=== PATIENT | female | born 1985 | race Hispanic/Latino ===

== ENCOUNTER 2025-10-12 11:55 | Emergency (ER) | payer BC ==
[~2025-10-12] VITALS: Ht 157.5 cm; Wt 81.6 kg
[~2025-10-12 11:55] MED LIST: DOCU-116 PO; IBUP-1493 PO; PREN-66 PO
[2025-10-12 12:22] LABS: IMMATURE GRANULOCYTE ABSOLUTE 0.05 K/uL (0-1); NUCLEATED RED BLOOD CELLS 0.0 % (0.0-0.19); PLATELET COUNT (AUTO) 264 K/uL (130-400); RED BLOOD CELL COUNT(AUTO) 4.41 MIL/uL (4.00-5.50); RED CELL DISTRIBUTION WIDTH 12.3 % (11.0-15.5); WHITE BLOOD COUNT (AUTO) 7.5 K/uL (4.8-10.8)
[2025-10-12] MEDS: 0.9%NACL 1000ML 1,000 ML IV ONE (12:22)
[2025-10-12] MEDS: ORPHENADRINE 60MG/2ML IM ONE (12:25)
[2025-10-12] MEDS: PROCHLORPERAZINE 10MG/2ML INJ IV ONE (12:25)
[2025-10-12 12:31] LABS: CREATININE 0.8 mg/dL (0.5-1.0); GLOMERULAR FILTR. RATE CALC 97.0 mL/min (>90); GLUCOSE,RANDOM 93.0 mg/dL (70-105); SODIUM SERUM 135.0 mmol/L (136-145); UREA NITROGEN, BLOOD 11.0 mg/dL (7-18)
[2025-10-12 12:32] VITALS: BP 97/70; PULSE 79; RESP 19; TEMP 98.6; O2SAT 96
--- NOTE | 2025-10-12 12:48 | ERN ---
General Chief Complaint: Headache Stated Complaint: HEADACHE Time Seen by MD: 11:56 Source: patient History of Present Illness Initial Comments PATIENT IS A FEMALE COMING IN HEADACHE. PATIENT STATES THAT THE HEADACHES HAS BEEN ONGOING FOR ONE MONTH. ALONG WITH THE HE STATES HE HAD SHE IS FOLLOWED UP AT SEVERAL PLACES FOR HER HEADACHE AND WANTED A MINORA INVERT NECK. Allergies: Coded Allergies: No Known Drug Allergies (Unverified Allergy, Unknown, 02/10/16) Home Meds Reported Medications Ibuprofen (Motrin/Advil) 800 Mg Tab, 800 MG PO TID PRN for PAIN LEVEL 5 TO 10, #90 TAB 0 Refills 06/16/17 Docusate Sodium (Colace) 100 Mg Capsule, 100 MG PO BID PRN for CONSTIPATION, #30 CAP 0 Refills 06/16/17 Hbc030/Iron Fumarate/FA/Dss ( 19 Tablet) 1 Each Tablet, 1 EACH PO HS, TAB 02/11/16 Past Medical History Past Medical History: No Pertinent History Past Surgical History: None ROS Dictation CONSTITUTIONAL: NO CHILLS, NO FEVER, NO WEAKNESS, NO DIAPHORESIS, NO MALAISE. HEAD/FACE: NO SIGNS OF TRAUMA. EENT: NO EYE PAIN, NO BLURRED VISION, NO TEARING, NO DOUBLE VISION, NO EAR PAIN, NO EAR DISCHARGE, NO NOSE PAIN, NO NASAL CONGESTION, NO THROAT PAIN, NO THROAT SWELLING, NO MOUTH PAIN. RESPIRATORY: NO COUGH, NO ORTHOPNEA, NO SOB, NO STRIDOR, NO WHEEZING. CARDIOVASCULAR: NO CHEST PAIN, NO EDEMA, NO PALPITATIONS, NO SYNCOPE. GASTROINTESTINAL/ABDOMINAL: NO ABDOMINAL PAIN, NO CONSTIPATION, NO DIARRHEA, NO NAUSEA, NO VOMITING. GENITOURINARY: NO ABNORMAL DISCHARGE, NO DYSURIA, NO FREQUENT URINATION, NO HEMATURIA. NO COMPLAINTS OF PAIN IN THE GENITALS. MUSCULOSKELETAL: NO BACK PAIN, NO GOUT, NO JOINT PAIN, NO JOINT SWELLING, MUSCLE PAIN, NO MUSCLE STIFFNESS, NO NECK PAIN. INTEGUMENTARY: NO CHANGE IN COLOR, NO CHANGE IN HAIR/NAILS, NO DRYNESS, NO LESION, NO LUMPS, NO RASH. NEUROLOGICAL/PSYCH: NO ANXIETY, NOT DEPRESSED, NO EMOTIONAL PROBLEM, NO HEADACHE, NO NUMBNESS, NO PRE-EXISTING DEFICIT, NO HISTORY OF SEIZURES, NO TREMORS, NO WEAKNESS. HEMATOLOGIC/LYMPHATIC: NOT ANEMIC, NO HISTORY OF BLOOD CLOTS, NO APPARENT BLEEDING, NO BRUISING, GLANDS NOT SWOLLEN. ALL SYSTEMS NEGATIVE, EXCEPT NOTED. Physical Exam Physical Exam Dictation VITAL SIGNS: REVIEWED. GENERAL APPEARANCE: ALERT, ORIENTED X3, NO ACUTE DISTRESS, OBESE. HEAD AND FACE: NON-TRAUMATIC. EYES: PERRL, PINK CONJUNCTIVAS, EYELID NO TRAUMA, ANTERIOR CHAMBER CLEAR. EARS: PINNAS INTACT AND NO SIGNS OF TRAUMA OR ERYTHEMA. EAR CANALS CLEAR AND NO DISCHARGE. TMS NO ERYTHEMA. NOSE: NO DISCHARGE, NO BLEEDING. OROPHARYNX: MOUTH NORMAL, TEETH NO CARIES, TONGUE PINK. PHARYNX CLEAR, NO ERYTHEMA. TONSILS NO EXUDATES, NO ABSCESSES NOTED. MUCOUS MEMBRANE MOIST. NECK: SUPPLE, NON-TENDER, NO THYROMEGALY, NO MASSES, NO JVD, NO BRUITS. BREAST: DEFERRED. CHEST: NO TENDERNESS, NO CREPITUS, NO PARADOXICAL MOVEMENT, NO RETRACTIONS. LUNGS: CLEAR, WELL-VENTILATED, SYMMETRIC, NO RALES, NO WHEEZING, NO RHONCHI, NO STRIDOR, GOOD BREATH SOUNDS BILATERALLY. HEART: REGULAR RATE, REGULAR RHYTHM, NO MURMUR, NO GALLOPS. VASCULAR: NO PERIPHERAL EDEMA. ABDOMEN: SOFT, POSITIVE BOWEL SOUNDS, NONDISTENDED, NO GUARDING, NONTENDER, NO REBOUND, NO MASSES NO HEPATOMEGALY, NO SPLENOMEGALY, NO HESTER'S SIGN, NO HERNIAS. RECTAL: DEFERRED. GENITAL: DEFERRED. NEUROLOGICAL: NORMAL SPEECH, GROSS MOTOR FUNCTION INTACT, GROSS SENSORY FUNCTION INTACT. MUSCULOSKELETAL: NECK NONTENDER, FULL RANGE OF MOTION, BACK NONTENDER, FULL RANGE OF MOTION. EXTREMITIES: NONTENDER, FULL RANGE OF MOTION. LEFT TRAPEZIUS MUSCLE TENDERNESS ON PALPATION SKIN: COLOR PINK, DRY, NO TURGOR, NO RASH, NO LACERATIONS, NO ABRASIONS, NO CONTUSIONS. LYMPHATICS: DEFERRED. Results Laboratory and Microbiology Lab and Micro Result Laboratory Tests Test 10/12/25 12:16 White Blood Count 7.5 K/uL (4.8-10.8) Red Blood Count 4.41 MIL/uL (4.00-5.50) Hemoglobin 14.1 g/dL (12.0-16.0) Hematocrit 40.2 % (36-48) Mean Corpuscular Volume 91.2 fL (79-99) Mean Corpuscular Hemoglobin 32.0 pg (27.0-33.0) Mean Corpuscular Hemoglobin Concent 35.1 g/dL (32.0-36.0) Red Cell Distribution Width 12.3 % (11.0-15.5) Platelet Count 264 K/uL (130-400) Mean Platelet Volume 10.5 fL (7.5-10.5) Immature Granulocyte % (Auto) 0.7 % (0-1) Neutrophils (%) (Auto) 56.6 % (40.0-77.0) Lymphocytes (%) (Auto) 32.5 % (21.0-51.0) Monocytes (%) (Auto) 8.2 % (3.0-13.0) Eosinophils (%) (Auto) 1.2 % (0.0-8.0) Basophils (%) (Auto) 0.8 % (0.0-5.0) Neutrophils # (Auto) 4.3 K/uL (1.8-7.7) Lymphocytes # (Auto) 2.5 K/uL (1.0-4.8) Monocytes # (Auto) 0.6 K/uL (0.1-1.0) Eosinophils # (Auto) 0.09 K/uL (0.00-0.70) Basophils # (Auto) 0.06 K/uL (0.00-0.20) Absolute Immature Granulocyte (auto 0.05 K/uL (0-1) Nucleated Red Blood Cells 0.0 % (0.0-0.19) Sodium Level 135 mmol/L (136-145) L Potassium Level 3.8 mmol/L (3.5-5.1) Chloride Level 99 mmol/L (101-111) L Carbon Dioxide Level 28 mmol/L (21-32) Blood Urea Nitrogen 11 mg/dL (7-18) Creatinine 0.8 mg/dL (0.5-1.0) Glomerular Filtration Rate Calc 97 mL/min (>90) Random Glucose 93 mg/dL (70-105) Total Calcium 9.6 mg/dL (8.5-10.1) Serum Test, Qualitative NEGATIVE (NEGATIVE) Labs Reviewed?: Yes MDM MDM: DIFFERENTIAL DIAGNOSIS: HEADACHE, TENSION HEADACHE, MUSCLE STRAIN, RATIONALE: TESTS CONSIDERED AND ORDERED SECONDARY TO SHARED DECISION MAKING INCLUDE: PREVIOUS OUTSIDE RECORDS REVIEWED: OLD ER VISITS. RISK OF COMPLICATION AND/OR MORBIDITY OR MORTALITY OF PATIENT MANAGEMENT: NONE MEDICATIONS-PER MEDICATION RECONCILIATION NEED FOR HOSPITALIZATION: PATIENT DOES NOT MEET CRITERIA FOR HOSPITALIZATION. NEED FOR EMERGENCY MAJOR/MINOR SURGERY: NO PATIENT IS A 39-YEAR-OLD FEMALE COMING IN COMPLAINING OF LEFT TRAPEZIUS MUSCLE PAIN AND HEADACHE. ON PHYSICAL EXAM THAT HAS TENDERNESS TO PALPATION OF THE TRAPEZIUS MUSCLE RADIATING UP THE SCALP. PATIENT RECEIVED MIGRAINE COCKTAIL STATES HE FEELS MUCH BETTER WE WILL BE DISCHARGED IN STABLE CONDITION WITH A DIAGNOSIS OF TENSION HEADACHE WITH A MUSCLE STRAIN. ED Course Orders Procedure Category Date Status Time Cbc With Differential LAB 10/12/25 Complete 12:02 Basic Metabolic Panel LAB 10/12/25 Complete 12:02 Testing, LAB 10/12/25 Complete Serum Hcg 12:02 0.9%Nacl 1000ml (Ns PHA 10/12/25 Complete 1000ml) 12:30 Prochlorperazine PHA 10/12/25 Complete 10mg/2ml Inj 12:30 Orphenadrine Citrate PHA 10/12/25 Complete (Norflex) 12:30 Current Medications Medications (Trade) Dose Ordered Sig/Glen Route PRN Reason Start Time Stop Time Status Last Admin Dose Admin Orphenadrine Citrate (Norflex) 60 mg ONCE ONCE IM 10/12/25 12:30 10/12/25 12:31 DC 10/12/25 12:25 Prochlorperazine Edisylate (Compazine 10mg/ 2ml Inj) 10 mg ONCE ONCE IV 10/12/25 12:30 10/12/25 12:31 DC 10/12/25 12:25 Sodium Chloride 1,000 ml @ 0 mls/hr ONCE ONCE IV 10/12/25 12:30 10/12/25 12:31 DC 10/12/25 12:22 Vital Signs Date Time Temp Pulse Resp B/P (MAP) Pulse Ox O2 Delivery O2 Flow Rate FiO2 10/12/25 12:32 98.6 79 19 97/70 96 Room Air* 0 21 10/12/25 11:56 98.8 101 18 139/81 98 DX & DISP Disposition: Discharge Departure Impression: Primary Impression: Tension headache Additional Impression: Muscle strain Condition: Stable Additional Instructions: FOLLOW-UP WITH PRIMARY CARE PROVIDER IN 1 TO 2 DAYS. TAKE MEDICATIONS DIRECTED HERE IN THE EMERGENCY ROOM. OKAY TO CONTINUE HOME MEDICATIONS UNLESS OTHERWISE DISCUSSED DURING YOUR VISIT IN THE EMERGENCY ROOM TODAY. RETURN TO YOUR NEAREST EMERGENCY ROOM IF SYMPTOMS WORSEN OR IF THERE IS NO IMPROVEMENT. CALL 911 IF YOU NEED IMMEDIATE ASSISTANCE. TAKE TYLENOL [id number] NEEDED AND IF NO CONTRAINDICATIONS ARE PRESENT. INCREASE ORAL HYDRATION. A WOUND CULTURE OR URINE CULTURE WAS ORDERED HERE IN THE EMERGENCY ROOM DEPARTMENT PLEASE FOLLOW-UP WITH PRIMARY CARE PROVIDER AND ADVISE THEM TO GET REPORTS FROM OUR FACILITY. IF YOU HAD ANY GENTRY WRAP/SPLINTS THAT WERE APPLIED HERE, PLEASE DO NOT REMOVE THEM UNTIL YOU SEE YOUR PRIMARY CARE OR SPECIALTY. REFERRALS: Referrals: SELF,REFERRAL (PCP) JARVIS LUI MD, LUIS A MD Time of Disposition: 12:47 AUGUST WEINER MD Oct 12, 2025 12:48
== END 2025-10-12 13:02 | disposition home or self-care (01) ==
LOC: EDH 11:55
DX: S46.812A Strain of other muscles, fascia and tendons at shoulder and upper arm level, left arm, initial encounter (principal); G44.209 Tension-type headache, unspecified, not intractable; X58.XXXA Exposure to other specified factors, initial encounter; Y93.89 Activity, other specified; Y92.89 Other specified places as the place of occurrence of the external cause; Y99.8 Other external cause status
CPT/HCPCS: 99284; 96374; 96361; 80048; 84703; 85025; 36415; 96372; J7030; J0780; J2360